=== PATIENT | male | born 1970 | race Caucasian/White ===

== ENCOUNTER 2017-02-04 18:43 | Emergency (ER) | payer SELFPAY ==
[~2017-02-04] VITALS: Ht 165.1 cm; Wt 77.1 kg
--- NOTE | 2017-02-04 18:43 | NUR ---
Pateint was MARICARMEN at this time.
[2017-02-04 18:54] VITALS: BP 155/107
--- NOTE | 2017-02-04 18:55 | NUR ---
Patient taken to bed 08.
--- NOTE | 2017-02-04 19:25 | NUR ---
Patient being evaluated by MARTA NAVARRETE at bedside.
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
[2017-02-04] MEDS ORDERED: HYDROcodone/APAP 5/325 MG 1 TAB TAB PO ONE (19:40)
[2017-02-04 21:04] VITALS: BP 125/75
--- NOTE | 2017-02-04 21:04 | NUR ---
Patient discharged with v/s stable. Written and verbal after care instructions given and explained. Patient alert, oriented and verbalized understanding of instructions. Ambulatory with steady gait. All questions addressed prior to discharge. ID band removed. Patient advised to follow up with PMD. Rx of TRAMADOL 50 MG, MOTRIN 800 MG given. Patient educated on indication of medication including possible reaction and side effects. Opportunity to ask questions provided and answered.
== END 2017-02-04 21:04 | disposition home or self-care (01) ==
LOC: MED 18:43
DX: S16.1XXA Strain of muscle, fascia and tendon at neck level, initial encounter (principal); S80.12XA Contusion of left lower leg, initial encounter; S40.212A Abrasion of left shoulder, initial encounter; I10 Essential (primary) hypertension; V49.20XA Unspecified car occupant injured in collision with unspecified motor vehicles in nontraffic accident, initial encounter; Y93.89 Activity, other specified; Y92.410 Unspecified street and highway as the place of occurrence of the external cause; Y99.9 Unspecified external cause status
CPT/HCPCS: 73590; 99284